=== PATIENT | female | born 1955 | race Caucasian/White ===

== ENCOUNTER 2016-02-23 09:26 | Emergency (ER) | payer MEDICARE ==
[2016-02-23] MEDS ORDERED: ALBUTEROL SULFATE/IPRATROPIUM 3 ML NEBU IH ONE ×2 (09:50→09:54)
--- NOTE | 2016-02-23 09:56 | ERNOTE ---
Neuro HPI ER Record Date of Service: 02/23/16 Presenting Symptoms: other - seizure Time Seen by Provider: 02/23/16 09:31 Source: patient, family, EMS Exam Limitations: no limitations Immunizations: IMMUNIZATION HX Immunizations Up to Date Yes History of Influenza Vaccine No Hx Pneumococcal Vaccination No Allergies/Adverse Reactions: Allergies Allergy/AdvReac Type Severity Reaction Status Date / Time No Known Allergies Allergy Verified 02/23/16 09:38 Home Medications: HOME MEDICATIONS Losartan Potassium [Cozaar] 100 mg PO DAILY 02/23/16 [Last Taken Unknown] levETIRAcetam [Keppra] 500 mg PO DAILY #60 tablet 02/23/16 [Last Taken Unknown] - History of Present Illness Narrative: Pt had a breakthrough seizure today, she is now coming out of the post-ictal state. Pt stopped taking her Lamictal because she could not afford the medication due to the moses. Onset: sudden onset Severity: moderate - Character of Deficits Baseline Cognition: Present: alert, oriented x 4 Baseline Gait: Present: walks w/o assistance Review of Systems - Review of Systems Constitutional: Present: See HPI EYE: Present: no symptoms reported ENT: Present: no symptoms reported Respiratory: Present: no symptoms reported Cardiology: Present: no symptoms reported Gastrointestinal/Abdominal: Present: no symptoms reported Genitourinary: Present: no symptoms reported Musculoskeletal: Present: no symptoms reported Skin: Present: no symptoms reported Neurological: Present: seizure Endocrine: Present: no symptoms reported Hematologic/Lymphatic: Present: no symptoms reported Psych: Present: no symptoms reported - Patient's Past Medical History Patient History - Medical: Diabetes Type 2, Seizures Patient History - Cancer: No Hx of Cancer Patient History - Surgical Procedures: Cholecystectomy, Total Knee Replacement LMP (females 10-50): Menopausal - Social History Living Situations: home Smoking Status: Former smoker Alcohol Use: rarely Drug Use: none Physical Exam - Physical Exam General Appearance: Present: wd/wn, alert, no apparent distress Eye Exam: Normal inspection: bilateral, PERRL: bilateral Ears, Nose, Throat: Present: hearing grossly normal, nasal congestion, normal pharynx Neck: Present: normal inspection, nontender Respiratory: Present: no respiratory distress, no accessory muscle use, chest nontender, wheezing Cardiovascular/Chest: Present: regular rate, rhythm, no murmur, normal peripheral pulses Gastrointestinal/Abdominal: Present: normal bowel sounds, nontender, nondistended, soft, no organomegaly Rectal Exam: Present: deferred Back Exam: Present: normal inspection, normal range of motion Extremity Exam: Present: normal inspection, non-tender, no edema, normal range of motion Neurological Exam: Present: alert, oriented, normal mood/affect Skin Exam: Present: normal color, warm/dry Lymphatic Exam: Present: no adenopathy [place] Coma Scale - Assess Eye Opening: Spontaneous Motor: Obeys Commands Verbal: Oriented - Total Coma Scale Total: 15 ED Progress - Vital Signs Vital Signs: Vital Signs 02/23/16 09:29 Temperature 35.3 C L Pulse Rate 72 Respiratory 12 Rate Blood Pressure 149/89 O2 Sat by Pulse 85 L Oximetry - Progress/Reassessment Chief Complaint: Seizure Activity Departure Clinical Impression: Seizure disorder - Departure Disposition: Home self-care Condition: Good Instructions: Seizure, Adult, [id number] Prescriptions: levETIRAcetam [Keppra] 500 mg PO DAILY #60 tablet
[2016-02-23 10:15] LABS: Hematocrit 38.4 % (37.0-47.0); Hemoglobin 12.8 gm/dL (12.5-16.0); Mean Cell Volume 85.5 fl (78-100); Mean Corpuscular Hemoglobin 28.5 pg (27-31); Mean Corpuscular Hgb Conc 33.3 g/dl (32-36); Neutrophil % 60.2 % (42-75.0); Platelet Count 317 K/mm3 (150-450); Red Blood Count 4.49 M/mm3 (4.2-5.4); Red Cell Distribution Width 14.5 % (11.5-14.0); White Blood Count 8.3 K/mm3 (4.0-10.5)
[2016-02-23 10:27] LABS: Urine Bilirubin Negative (NEGATIVE); Urine Blood 50 /ul (NEGATIVE); Urine Ketone Negative (NEGATIVE); Urine Nitrite Negative (NEGATIVE); Urine Protein 100 mg/dL (NEGATIVE); Urine Urobilinogen Normal (NORMAL)
[2016-02-23 10:28] LABS: Albumin * 4.1 gm/dl (3.4-5.0); Anion Gap 15.9 mmol/L (6.8-13.8); BUN/Creatinine Ratio 4.7 (9.0-21.6); Bilirubin, Total 0.7 mg/dL (0.0-1.1); Ca. Corrected For Albumin 8.9 mg/dL (8.4-10.2); Calcium * 9.3 mg/dL (7.9-10.9); Carbon Dioxide 26.1 mmol/L (24-32.6); Magnesium 1.8 mg/dL (1.2-2.8)
[2016-02-23 10:28] LABS: Urine Appearance Clear; Urine Color Yellow
[2016-02-23 10:34] LABS: Urine Bacteria None Seen; Urine RBC 0-5 /hpf (0-5); Urine WBC None Seen /hpf (0-5)
[2016-02-23] MEDS ORDERED: ONDANSETRON HCL/PF 2 MG/ML VIAL ONE (10:36)
[2016-02-23] MEDS ORDERED: ONDANSETRON HCL/PF 2 MG/ML VIAL IV ONE (10:37)
[2016-02-23 12:08] VITALS: BP 141/77
== END 2016-02-23 12:38 | disposition home or self-care (01) ==
LOC: ER 09:26
DX: G40.909 Epilepsy, unspecified, not intractable, without status epilepticus (principal); Z78.0 Asymptomatic menopausal state; Z90.49 Acquired absence of other specified parts of digestive tract; Z96.659 Presence of unspecified artificial knee joint

== ENCOUNTER 2017-01-08 08:21 | Observation (INO) | payer MEDICARE ==
[2017-01-08 08:36] LABS: Hematocrit 45.3 % (37.0-47.0); Hemoglobin 13.9 gm/dL (12.5-16.0); Mean Cell Volume 93.8 fl (78-100); Mean Corpuscular Hemoglobin 28.8 pg (27-31); Mean Corpuscular Hgb Conc 30.7 g/dl (32-36); Mean Platelet Volume 9.9 fl (6.0-9.5); Platelet Count 427 K/mm3 (150-450); Red Blood Count 4.83 M/mm3 (4.2-5.4); Red Cell Distribution Width 14.1 % (11.5-14.0); White Blood Count 24.5 K/mm3 (4.0-10.5)
[2017-01-08 08:43] LABS: Total Cells Counted 100
[2017-01-08 08:45] LABS: Urine Bilirubin Negative (NEGATIVE); Urine Blood 25 /ul (NEGATIVE); Urine Ketone Negative (NEGATIVE); Urine Nitrite Negative (NEGATIVE); Urine Protein Negative (NEGATIVE); Urine Specific Gravity 1.015 SP.GR. (1.005-1.010); Urine Urobilinogen Normal (NORMAL); Urine pH 5.5 pH (5.0-7.0)
[2017-01-08] MEDS ORDERED: LORazepam 2 MG/ML DISP.SYRIN ONE (08:48)
[2017-01-08 08:55] LABS: Cocaine Ur Negative (NEGATIVE); Urine Barbiturate Negative (NEGATIVE); Urine Benzodiazepines Negative (NEGATIVE); Urine Opiates Negative (NEGATIVE); Urine PCP Negative (NEGATIVE); Urine THC Negative (NEGATIVE)
[2017-01-08 08:57] LABS: Albumin * 4.2 gm/dl (3.4-5.0); Anion Gap 27.4 mmol/L (6.8-13.8); BUN/Creatinine Ratio 8.4 (9.0-21.6); Bilirubin, Total 0.5 mg/dL (0.0-1.1); Ca. Corrected For Albumin 8.4 mg/dL (8.4-10.2); Calcium * 8.9 mg/dL (7.9-10.9); Carbon Dioxide 15.6 mmol/L (24-32.6); Phenytoin 0.5 mcg/mL (10-20); Total Protein 8.2 gm/dL (6.2-8.2)
[2017-01-08 08:59] LABS: Atypical (Reactive) Lymph 1 % (0-2); Band 1 % (0-2.0); Eosinophil 1 % (0-3); Immature Granulocyte 1 (0-1); Lymphocyte 57 % (20-51); Monocyte 4 % (0-9); Neutrophil 35 % (42-75); Neutrophil # 8.6 K/mm3 (1.3-6.0)
[2017-01-08 09:00] LABS: Platelet Estimate Normal (NORMAL); RBC Morphology Normal (NORMAL)
--- NOTE | 2017-01-08 09:04 | ERNOTE ---
Neuro HPI ER Record Presenting Symptoms: other - seizure Time Seen by Provider: 01/08/17 08:21 Source: family Exam Limitations: clinical condition Immunizations: IMMUNIZATION HX Immunizations Up to Date Yes History of Influenza Vaccine No Hx Pneumococcal Vaccination No Allergies/Adverse Reactions: Allergies Allergy/AdvReac Type Severity Reaction Status Date / Time silver Allergy Verified 01/08/17 12:34 Home Medications: HOME MEDICATIONS Atorvastatin Calcium [Lipitor] 80 mg PO HS 08/11/16 [Last Taken Unknown] Diltiazem HCl [Diltiazem 24Hr Cd] 240 mg PO DAILY 08/11/16 [Last Taken Unknown] Furosemide [Lasix] 40 mg PO DAILY 08/11/16 [Last Taken Unknown] Levothyroxine Sodium [Synthroid] 250 mcg PO DAILY 08/11/16 [Last Taken Unknown] Losartan Potassium [Cozaar] 100 mg PO DAILY 08/11/16 [Last Taken Unknown] Spironolactone [Aldactone] 25 mg PO DAILY 08/11/16 [Last Taken Unknown] levETIRAcetam [Keppra] 500 mg PO BID 08/11/16 [Last Taken Unknown] Aspirin 325 mg PO DAILY 01/08/17 [Last Taken Unknown] Lamotrigine [Lamictal] 100 mg PO HS 01/08/17 [Last Taken Unknown] metFORMIN HCL [Metformin HCl ER] 1,000 mg PO DAILY 01/08/17 [Last Taken Unknown] - History of Present Illness Narrative: Patient has a history of seizures since her 30's. She has been non compliant with her medications in the past partially due to the medication expense. This morning she had a seizure while in bed, EMS was called, on their arrival patient was alert enough to refuse transport and the family decided to bring her by private car. While in the van she had another seizure, that had stopped on arrival, but patient continued to be confused and minimally responsive. History is obtained from family, no injury reported, no recent illness. Review of her chart shows low drug levels in the past as well as elevated TSH indicating poor drug compliance as reported by the family. Review of Systems - Narrative Narrative: unobtainable due to patient's mental status - Patient's Past Medical History Patient History - Medical: Anemia, Diabetes Type 2, Hypothyroidism, Obesity, Seizures Patient History - Cardiac/Respiratory: Hypertension, Hyperlipidemia Patient History - Cancer: No Hx of Cancer Patient History - Surgical Procedures: Appendectomy, Cholecystectomy, Total Knee Replacement Patient History - Other: None - Family History Mother Family History - Medical: Diabetes Type 2, Hypothyroidism Family History - Cardiac/Respiratory: Hypertension - Social History Living Situations: home Abuse History: No History of abuse Psych History: No pertinent hx - Immunizations Immunizations Up to Date: Yes Hx Pneumococcal Vaccination: No History of Influenza Vaccine: No Physical Exam - Physical Exam General Appearance: Present: wd/wn, lethargic, obese Head Exam: Present: normal inspection, no evidence of injury Eye Exam: Normal inspection: bilateral, PERRL: bilateral Ears, Nose, Throat: Present: normal pharynx Neck: Present: normal inspection Respiratory: Present: no respiratory distress, normal breath sounds, no accessory muscle use, lungs clear Cardiovascular/Chest: Present: regular rate, rhythm, no murmur Gastrointestinal/Abdominal: Present: nondistended, soft Neurological Exam: Present: other - moves all extremities Skin Exam: Present: normal color, warm/dry [place] Coma Scale - Assess Eye Opening: To Pain Motor: Withdraws to Pain Verbal: Incomprehensible - Total Coma Scale Total: 8 ED Progress - Results and Orders Patient's Lab Results:: I have reviewed the patient's lab results. - Vital Signs Patient's Vital Signs:: I have reviewed the patient's vital signs. Vital Signs: Vital Signs 01/08/17 01/08/17 08:24 08:34 Temperature 36 C L Pulse Rate 85 89 Respiratory 17 Rate Blood Pressure 183/95 O2 Sat by Pulse 93 Oximetry - EKG EKG: NSR, no ST T wave changes, other - no acute changes EKG read: Interp. by me - Progress/Reassessment Chief Complaint: Seizure Activity Progress Note-Subjective: 01/08/17 08:59 patient had about 30 second tonic clonic seizure, self limited before 1mg of ativan was given. During seizure patient turned blue, O2 sats dropped to 70's, after nasal trumpet was placed improved color and O2 sats mid 90's on 2liters family updated 01/08/17 09:41 patient resting, confused, O2sats 92% on 3liter per mask discussed test results with family 01/08/17 09:51 patient had another tonic clonic seizure, lasting about 45 minutes, stopped before ativan was given 01/08/17 10:55 patient not seizing, still confused, moves all extremities discussed with polly Mitchell to admit for observation Departure Clinical Impression: Seizure disorder, status epilepticus, convulsive - Departure Disposition: [facility] Condition: Stable
[2017-01-08 09:05] LABS: Urine Appearance Clear; Urine Bacteria None Seen; Urine Color Yellow; Urine RBC 0-5 /hpf (0-5); Urine WBC None Seen /hpf (0-5)
[2017-01-08] MEDS ORDERED: LORazepam 2 MG/ML DISP.SYRIN IV ONE ×2 (09:05→09:51)
[2017-01-08 09:06] LABS: Urine Amorphous Sediment Few - 1+ (NONE-FEW)
[2017-01-08 09:31] LABS: TSH * 230.445 uIU/mL (0.358-3.74)
[2017-01-08] MEDS ORDERED: LORazepam 2 MG/ML DISP.SYRIN IV PRN (14:29)
[2017-01-08] MEDS: levETIRAcetam 500 MG TABLET PO SCH ×2 (14:56→20:02)
[2017-01-08] MEDS ORDERED: FLU VACC QS2017-18(6MOS UP)/PF 60 MCG/0.5 ML SYRINGE IM ONE (15:00)
[2017-01-08] MEDS ORDERED: ACETAMINOPHEN 500 MG TABLET PO PRN (19:55)
--- NOTE | 2017-01-08 20:29 | HP ---
Chief Complaint - Chief Complaint Date of Service: 01/08/17 Time of Service: 20:23 Chief Complaint: Seizure History of Present Illness: 61 years old female adm to the hospital with reports of witness seizure activities while at home. PMH significant for Epilepsy, hypertension, diabetes II, hyperlipidemia, bronchitis and obesity. Pt lethargic so most information provided by son. Per son pt don't take her medications because she claim they make her unable to think straight. She follow up with Dr Carmona and was last seen 6-8 months ago when she had her last seizure. While at home she had an episode that lasted for approximately 15 minutes and EMS was called. upon there arrival pt refused to travel with EMS and was brought to the ER by family. Pt was confused and son stated she had LOC but is more coherent, than when she initially came to the ER. In ER phenytoin level was checked and a dose IV was given. Plan of care discussed with pt and her son, they verbalized understanding and agrees. - Patient's Past Medical History Patient History - Medical: Anemia, Diabetes Type 2, Hypothyroidism, Obesity, Seizures Patient History - Cardiac/Respiratory: Hypertension, Hyperlipidemia Patient History - Cancer: No Hx of Cancer Patient History - Surgical Procedures: Appendectomy, Cholecystectomy, Total Knee Replacement Patient History - Other: None LMP (females 10-50): Menopausal - Family History Mother Family History - Medical: Diabetes Type 2, Hypothyroidism Family History - Cardiac/Respiratory: Hypertension Father Family History - Medical: No pertinent hx - Social History Living Situations: home Abuse History: No History of abuse Psych History: No pertinent hx Smoking Status: Former smoker Have you smoked in the past 12 months: No Do you dip or chew tobacco: No Alcohol Use: rarely Drug Use: none - Immunizations Immunizations Up to Date: Yes Hx Pneumococcal Vaccination: No History of Influenza Vaccine: No Review Of Systems (GEN) - Review of Systems Generalized/Overall Review: Present: Fatigue EENTM: Present: No Symptoms Reported Respiratory: Present: Cough Cardiac: Present: No Symptoms Reported Abdominal: Present: No Symptoms Reported Genitourinary: Present: No Symptoms Reported Musculoskeletal: Present: No Symptoms Reported Neurological: Present: Seizure Skin: Present: No Symptoms Reported Endocrine: Present: No Symptoms Reported Immunizations: IMMUNIZATION HX Immunizations Up to Date Yes History of Influenza Vaccine No Hx Pneumococcal Vaccination No Allergies/Adverse Reactions: Allergies Allergy/AdvReac Type Severity Reaction Status Date / Time silver Allergy Verified 01/08/17 12:34 Home Medications: HOME MEDICATIONS Atorvastatin Calcium [Lipitor] 80 mg PO HS 08/11/16 [Last Taken Unknown] Diltiazem HCl [Diltiazem 24Hr Cd] 240 mg PO DAILY 08/11/16 [Last Taken Unknown] Furosemide [Lasix] 40 mg PO DAILY 08/11/16 [Last Taken Unknown] Levothyroxine Sodium [Synthroid] 250 mcg PO DAILY 08/11/16 [Last Taken Unknown] Losartan Potassium [Cozaar] 100 mg PO DAILY 08/11/16 [Last Taken Unknown] Spironolactone [Aldactone] 25 mg PO DAILY 08/11/16 [Last Taken Unknown] levETIRAcetam [Keppra] 500 mg PO BID 08/11/16 [Last Taken Unknown] Aspirin 325 mg PO DAILY 01/08/17 [Last Taken Unknown] Lamotrigine [Lamictal] 100 mg PO HS 01/08/17 [Last Taken Unknown] metFORMIN HCL [Metformin HCl ER] 1,000 mg PO DAILY 01/08/17 [Last Taken Unknown] Exam - Exam Vital Signs: Vital Signs - Last Taken Temp 37.2 C 01/08/17 15:48 Pulse 80 01/08/17 15:00 Resp 18 01/08/17 15:00 BP 136/89 01/08/17 15:00 Pulse Ox 100 01/08/17 15:00 Constitutional: Present: Alert, Oriented x3, Cooperative, Well developed, No distress, Morbidly obese ENT Exam: Present: hearing grossly normal Eye Exam: bilateral eye: normal inspection Neck: Present: full range of motion Back Exam: Present: normal inspection Breasts: Present: Exam deferred Respiratory: Present: chest non-tender, normal breath sounds, no respiratory distress, decreased breath sounds, rales Cardiovascular/Chest: Present: normal peripheral pulses, regular rate, rhythm, no chest tenderness, no edema, no gallop Peripheral Pulses: dorsalis-pedis (R): 2+, dorsalis-pedis (L): 2+ Abdomen: Present: Normal bowel sounds, soft, nontender, nondistended, no rebound tenderness /Rectal: Present: Exam deferred Extremity: Present: normal range of motion, non-tender, normal inspection, no pedal edema, no calf tenderness Skin Exam: Present: normal color Lymphatic: Present: no adenopathy Neurologic: Present: oriented x 3 Appearance: Present: appropriate appearance Thoughts: Present: normal thought pattern, no apparent hallucination Diagnostic Studies: Laboratory Results WBC 24.5 K/mm3 (4.0-10.5) H 01/08/17 08:28 RBC 4.83 M/mm3 (4.2-5.4) 01/08/17 08:28 Hgb 13.9 gm/dL (12.5-16.0) 01/08/17 08:28 Hct 45.3 % (37.0-47.0) 01/08/17 08:28 MCV 93.8 fl (78-100) 01/08/17 08:28 MCH 28.8 pg (27-31) 01/08/17 08:28 MCHC 30.7 g/dl (32-36) L 01/08/17 08:28 RDW 14.1 % (11.5-14.0) H 01/08/17 08:28 Plt Count 427 K/mm3 (150-450) 01/08/17 08:28 MPV 9.9 fl (6.0-9.5) H 01/08/17 08:28 Neutrophils % (Manual) 35 % (42-75) L 01/08/17 08:28 Band Neuts % (Manual) 1 % (0-2.0) 01/08/17 08:28 Lymphocytes % (Manual) 57 % (20-51) H 01/08/17 08:28 Monocytes % (Manual) 4 % (0-9) 01/08/17 08:28 Eosinophils % (Manual) 1 % (0-3) 01/08/17 08:28 Immature Granulocytes 1 (0-1) 01/08/17 08:28 Neutrophils # (Manual) 8.6 K/mm3 (1.3-6.0) H 01/08/17 08:28 Lymphocytes # (Manual) 14.0 k/mm3 (1.5-3.5) H 01/08/17 08:28 Monocytes # (Manual) 1.0 k/mm3 (0.0-1.0) 01/08/17 08:28 Eosinophils # (Manual) 0.2 k/mm3 (0.0-0.7) 01/08/17 08:28 Atypic/Reactive Lymphs 1 % (0-2) 01/08/17 08:28 Platelet Estimate Normal (NORMAL) 01/08/17 08:28 RBC Morphology Normal (NORMAL) 01/08/17 08:28 Sodium 138 mmol/L (132-142) 01/08/17 08: Plasma Sodium 140 mmol/L (130-142) 01/08/17 08:28 Potassium 4.0 mmol/L (3.4-4.6) 01/08/17 08: Chloride 99 mmol/L (97-106) 01/08/17 08: Carbon Dioxide 15.6 mmol/L (24-32.6) L 01/08/17 08: Anion Gap 27.4 mmol/L (6.8-13.8) H 01/08/17 08: BUN 11 mg/dL (3-23) 01/08/17 08: Creatinine 1.31 mg/dL (0.4-1.4) 01/08/17 08: Est GFR (Non-Af Amer) 44 mL/min (60-130) L D 01/08/17 08: BUN/Creatinine Ratio 8.4 (9.0-21.6) L 01/08/17 08: Random Glucose 215 mg/dL (70-110) H 01/08/17 08:28 Calcium 8.9 mg/dL (7.9-10.9) 01/08/17 08: Calcium Adj for Albumin 8.4 mg/dL (8.4-10.2) 01/08/17 08: Total Bilirubin 0.5 mg/dL (0.0-1.1) 01/08/17 08:28 AST 21 U/L (0-48) 01/08/17 08:28 ALT 22 U/L (19-67) 01/08/17 08:28 Alkaline Phosphatase 98 U/L (50-170) 01/08/17 08:28 Total Protein 8.2 gm/dL (6.2-8.2) 01/08/17 08:28 Albumin 4.2 gm/dl (3.4-5.0) 01/08/17 08:28 Procalcitonin Less than 0.05 ng/mL (0.05-0.50) L 01/08/17 08:28 TSH 230.445 uIU/mL (0.358-3.74) H 01/08/17 08:28 Free T4 0.21 ng/dL (0.76-1.46) L 01/08/17 08:28 Urine Color Yellow 01/08/17 08:40 Urine Appearance Clear 01/08/17 08:40 Urine pH 5.5 pH (5.0-7.0) 01/08/17 08:40 Ur Specific [place] 1.015 SP.GR. (1.005-1.010) 01/08/17 08:40 Urine Protein Negative mg/dL (NEGATIVE) 01/08/17 08:40 Urine Glucose (UA) Negative mg/dL (NEGATIVE) 01/08/17 08:40 Urine Ketones Negative mg/dL (NEGATIVE) 01/08/17 08:40 Urine Blood 25 /ul (NEGATIVE) H 01/08/17 08:40 Urine Nitrate Negative (NEGATIVE) 01/08/17 08:40 Urine Bilirubin Negative mg/dl (NEGATIVE) 01/08/17 08:40 Urine Urobilinogen Normal EU/dl (NORMAL) 01/08/17 08:40 Ur Leukocyte Esterase Negative /ul (NEGATIVE) 01/08/17 08:40 Urine RBC 0-5 /hpf (0-5) 01/08/17 08:40 Urine WBC None seen /hpf (0-5) 01/08/17 08:40 Ur Epithelial Cells None seen /hpf (0-5) 01/08/17 08:40 Amorphous Sediment Few - 1+ (NONE-FEW) 01/08/17 08:40 Urine Bacteria None seen (NONE) 01/08/17 08:40 Urine Culture Comments No culture indicated 01/08/17 08:40 Urine Opiates Screen Negative (NEGATIVE) 01/08/17 08:40 Barbiturate Screen Negative (NEGATIVE) 01/08/17 08:40 Phenytoin 0.5 mcg/mL (10-20) L 01/08/17 08:28 Ur Phencyclidine Scrn Negative (NEGATIVE) 01/08/17 08:40 Urine Amphetamine Negative (NEGATIVE) 01/08/17 08:40 U Benzodiazepines Scrn Negative (NEGATIVE) 01/08/17 08:40 Urine Cocaine Screen Negative (NEGATIVE) 01/08/17 08:40 Urine Marijuana (THC) Negative (NEGATIVE) 01/08/17 08:40 Assessment/Plan - Narrative Narrative: Recurrent Seizure- non compliance to treatment regimen pt stated she don't take medications because she is not able to focus while on medications keppra level low , a dose was given in ER ETOH level negative Seizure precaution, Ativan PRN Supplement oxygen PRN, pt was hypoxic with seizure activity while in ER Diabetes On adm BG 215--->127 consistent carb diet accu-check AC+HS Resume home medications Hypothyriodism-pt not taking medication On adm TSH 230.445 T3, T4 pending Resume medications Bronchitis vs pneumonia On adm WBC 24.5, afebrile concern for aspiration pneumonia pt been having frequent recurrent seizure activity CXR pending Son stated pt was diagnosed with bronchitis few weeks ago Will start on clindamycin as Rocephin and Levaquin lower seizure threshold Code status; Full VTE ppx: SCd and ambulate GI ppx: pepcid Time 40 minutes and case discussed with Dr Matute - Assessment/Plan (1) Seizure disorder, status epilepticus, convulsive Problem: Acute (2) Dizziness Problem: Acute (3) Diabetes Problem: Chronic Qualifiers: Diabetes mellitus type: type 2 (4) Hypothyroidism Problem: Chronic (5) Hypoxia Problem: Resolved
[2017-01-08] MEDS ORDERED: lamoTRIgine 100 MG TABLET PO SCH (21:00)
[2017-01-08] MEDS ORDERED: ATORVASTATIN CALCIUM 40 MG TABLET PO SCH (21:00)
[2017-01-08] MEDS: FAMOTIDINE 20 MG TABLET PO SCH (21:44)
[2017-01-08] MEDS: CLINDAMYCIN PHOSPHATE 600 MG in DEXTROSE 5 % IN WATER 100 ML IV SCH ×2 (23:36)
[2017-01-09 06:03] LABS: Hematocrit 38.6 % (37.0-47.0); Hemoglobin 12.6 gm/dL (12.5-16.0); Mean Cell Volume 88.3 fl (78-100); Mean Corpuscular Hemoglobin 28.8 pg (27-31); Mean Corpuscular Hgb Conc 32.6 g/dl (32-36); Mean Platelet Volume 9.6 fl (6.0-9.5); Neutrophil # 6.3 K/mm3 (1.3-6.0); Neutrophil % 56.4 % (42-75.0); Platelet Count 290 K/mm3 (150-450); Red Blood Count 4.37 M/mm3 (4.2-5.4); Red Cell Distribution Width 14.2 % (11.5-14.0); White Blood Count 11.1 K/mm3 (4.0-10.5)
[2017-01-09 06:49] VITALS: BP 126/72
[2017-01-09] MEDS ORDERED: LEVOTHYROXINE SODIUM PO SCH ×2 (07:00)
--- NOTE | 2017-01-09 07:32 | DS ---
(1) Seizure disorder, status epilepticus, convulsive Problem: Resolved (2) Hypothyroidism Problem: Chronic (3) Seizure disorder Problem: Chronic (4) Aspiration pneumonia Problem: Suspected (5) Noncompliance with medication regimen Problem: Acute Description of Stay: ADMISSION DATE: 01/08/2017 DISCHARGE DATE: 01/09/2017 ADMISSION HPI by ROSALIA Coulter: 61 years old female adm to the hospital with reports of witness seizure activities while at home. PMH significant for Epilepsy, hypertension, diabetes II, hyperlipidemia, bronchitis and obesity. Pt lethargic so most information provided by son. Per son pt don't take her medications because she claim they make her unable to think straight. She follow up with Dr Carmona and was last seen 6-8 months ago when she had her last seizure. While at home she had an episode that lasted for approximately 15 minutes and EMS was called. upon there arrival pt refused to travel with EMS and was brought to the ER by family. Pt was confused and son stated she had LOC but is more coherent, than when she initially came to the ER. In ER phenytoin level was checked and a dose IV was given. Plan of care discussed with pt and her son, they verbalized understanding and agrees. HOSPITAL COURSE: The patient was admitted to the hospital after having a seizure which was provoked secondary to patients noncompliance with taking her Keppra. The patient has a known history of a seizure disorder and is supposed to be on Keppra twice a day at home however she has a long-standing history of medication noncompliance. When I asked the patient why she didnt take her Keppra medicine she shook her head and said she didnt know. Her son was also in the room stated it was because she is seeking attention. The patient was given IV Keppra during her admission and was transitioned back to her home dose prior to discharge. The patient remained seizure-free during her admission and was discharged home in stable condition. Of note, there was concern for possible aspiration pneumonia and thus the patient will complete a seven-day course of treatment with clindamycin. Patient will need a follow-up chest x- ray in approximately 4-6 weeks. It is also quite obvious by the patients elevated TSH on admission that not she is not taking her home levothyroxine either. FOLLOW-UP APPOINTMENTS: -PCP, Dr. Abdi within 1-2 weeks -Follow-up CXR in ~4 weeks NEW OR CHANGED MEDICATIONS: Clindamycin 300mg PO TID X 6 days DISCONTINUED MEDICATIONS: None RADIOLOGY REPORTS: PA and lateral chest x-ray on 01/08/2017 showed: Hypoventilatory changes. Central bronchial wall prominence suggestive of acute or chronic bronchitis or reactive airway disease. Also consider COPD, if the patient has a history of smoking. Left lower lobe retrocardiac atelectasis versus questionable small infiltrate. Correlate clinically for pneumonia. Procedures Performed: none Discharge Disposition: Home self care Disposition: Home self-care Condition: Stable Discharge Activity: Activity as tolerated Discharge Diet: Consistent carbs Referrals: Carmela Abdi DO [Primary Care Provider] - Problem Oriented Discharge Instructions to Patient/Family: Seizure, Adult, Easy -to-Read, Diabetes Mellitus and Food Additional Patient Instructions (free text): Follow-up with PCP within 1-2 weeks Follow up with [address] Abdi 01/17 at 2:30. Prescriptions (Any new or edited meds): Clindamycin HCl 300 mg PO TID 6 Days #18 capsule Complete Home Medications List: Complete Home Medication List: Atorvastatin Calcium [Lipitor] 80 mg PO HS 08/11/16 Diltiazem HCl [Diltiazem 24Hr Cd] 240 mg PO DAILY 08/11/16 Furosemide [Lasix] 40 mg PO DAILY 08/11/16 Levothyroxine Sodium [Synthroid] 250 mcg PO DAILY 08/11/16 Losartan Potassium [Cozaar] 100 mg PO DAILY 08/11/16 Spironolactone [Aldactone] 25 mg PO DAILY 08/11/16 levETIRAcetam [Keppra] 500 mg PO BID 08/11/16 Aspirin 325 mg PO DAILY 01/08/17 Lamotrigine [Lamictal] 100 mg PO HS 01/08/17 metFORMIN HCL [Metformin HCl ER] 1,000 mg PO DAILY 01/08/17 Clindamycin HCl 300 mg PO TID 6 Days #18 capsule 01/09/17 Amb Orders for Discharge: US Ext Soft Tissue Limited RT Location: Determined By Patient
[2017-01-09] MEDS: CLINDAMYCIN PHOSPHATE 600 MG in DEXTROSE 5 % IN WATER 100 ML IV SCH ×2 (08:38)
[2017-01-09] MEDS: FAMOTIDINE 20 MG TABLET PO SCH (08:41)
[2017-01-09] MEDS: levETIRAcetam 500 MG TABLET PO SCH (08:41)
[2017-01-09] MEDS ORDERED: FUROSEMIDE 40 MG TABLET PO SCH (09:00)
[2017-01-09] MEDS ORDERED: SPIRONOLACTONE 25 MG TABLET PO SCH (09:00)
[2017-01-09] MEDS ORDERED: ASPIRIN 325 MG TABLET.DR PO SCH (09:00)
[2017-01-09] MEDS ORDERED: LEVOTHYROXINE SODIUM 250 MCG PO SCH (09:00)
[2017-01-09] MEDS ORDERED: LOSARTAN POTASSIUM 50 MG TABLET PO SCH (09:00)
[2017-01-09] MEDS ORDERED: DILTIAZEM HCL 240 MG CAP.SR.24H PO SCH (09:00)
== END 2017-01-09 09:31 | disposition home or self-care (01) ==
LOC: ER 08:21 → MS 11:11
PROVIDERS: ADMIT Family Medicine; ATTEND Internal Medicine
DX: G40.901 Epilepsy, unspecified, not intractable, with status epilepticus (principal); E03.9 Hypothyroidism, unspecified; Z91.120 Patient's intentional underdosing of medication regimen due to financial hardship; E11.9 Type 2 diabetes mellitus without complications; I10 Essential (primary) hypertension; E78.5 Hyperlipidemia, unspecified; E66.9 Obesity, unspecified; Z68.39 Body mass index [BMI] 39.0-39.9, adult; R09.02 Hypoxemia; J40 Bronchitis, not specified as acute or chronic; Z87.891 Personal history of nicotine dependence
CPT/HCPCS: 36415; 71020; 80053; 80185; 80307; 81001; 84145; 84439; 84443; 84481; 85025; 87040; 93005; 96365; 96366; 96375; 96376; 99285; G0378